=== PATIENT | male | born 1980 | race African-American/Black ===

== ENCOUNTER 2016-04-22 19:58 | Emergency (ER) | payer MEDICAID, OTHER ==
[2016-04-22 20:33] VITALS: BP 118/73; PULSE 72; RESP 16; TEMP 98.4; O2SAT 97
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
== END 2016-04-22 21:02 | disposition home or self-care (01) ==
LOC: CED 19:58
DX: S20.229A Contusion of unspecified back wall of thorax, initial encounter (principal); M54.6 Pain in thoracic spine; W22.8XXA Striking against or struck by other objects, initial encounter
CPT/HCPCS: 99213-PO; G0463-PO

== ENCOUNTER 2016-07-15 22:13 | Emergency (ER) | payer MEDICAID ==
[2016-07-15 22:25] VITALS: BP 108/73; PULSE 71; TEMP 98.2
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
[2016-07-15 23:08] VITALS: RESP 18; O2SAT 95
== END 2016-07-15 23:03 | disposition home or self-care (01) ==
LOC: CED 22:13
DX: S60.511A Abrasion of right hand, initial encounter (principal); W19.XXXA Unspecified fall, initial encounter; Y92.480 Sidewalk as the place of occurrence of the external cause
CPT/HCPCS: G0463-PO